=== PATIENT | male | born 1990 | race Asian ===

== ENCOUNTER 2018-02-05 21:15 | Emergency (ER) | payer SELFPAY ==
[2018-02-05 21:23] VITALS: TEMP 98.1
--- NOTE | 2018-02-05 21:29 | EDPHY ---
H & P Stated Complaint: Anxiety Time Seen by Provider: 02/05/18 21:16 - Personal History Current Tetanus/Diphtheria Vaccine: Unsure Current Tetanus Diphtheria and Acellular Pertussis (TDAP): Unsure - Medical/Surgical History Hx Asthma: No Hx Chronic Respiratory Disease: No Hx Diabetes: No Hx Cardiac Disease: No Hx Renal Disease: No Hx Cirrhosis: No Hx Alcoholism: No Hx HIV/AIDS: No Hx Splenectomy or Spleen Trauma: No Other PMH: Anxiety - Social History Smoking Status: Never smoked Constitutional: Initial Vital Signs Temperature (C) 36.7 C 02/05/18 21:20 Heart Rate 80 02/05/18 21:20 Respiratory Rate 18 02/05/18 21:20 Blood Pressure 147/95 H 02/05/18 21:20 O2 Sat (%) 98 02/05/18 21:20 O2 Delivery Mode Room Air Allergies/Adverse Reactions: alcohol Allergy (Verified 02/05/18 21:19) Home Medications: Medication Instructions Recorded NK [No Known Home Meds] 02/05/18 Medical Decision Making ED Course/Re-evaluation: CHIEF COMPLAINT: Anxiety HISTORY OF PRESENT ILLNESS: The patient is a 27 y/o [place] international student complaining of anxiety. Symptoms began after he had an interaction with a TA who told him his "paper was garbage" and would not give constructive feedback. He also has had difficulty communicating with fellow students due to his strong accent. He feels like he has no friends in the . No medical issues. REVIEW OF SYSTEMS: A 10 point review of systems was performed and is negative with the exception of the elements mentioned in the history of present illness. PHYSICAL EXAM: HR, BP, O2 Sat, RR. Temp noted General Appearance: Alert, well hydrated, appropriate, and non-toxic appearing. Anxious-appearing. Head: Atraumatic without scalp tenderness or obvious injury Eyes: Pupils equal, round, reactive to light and accommodation, EOMI, no trauma , no injection. Nose: Atraumatic, no rhinorrhea, clear. Throat: There is no erythema or exudates, no lesions, normal tonsils, mucus membranes moist. Neck: Supple, nontender, no lymphadenopathy. Respiratory: No retractions, no distress, no wheezes, and no accessory muscle use. Lungs are clear to auscultation bilaterally. Cardiovascular: Regular rate and rhythm, no murmurs, rubs, or gallops. Good capillary refill all extremities. Gastrointestinal: Abdomen is soft, nontender, non-distended, no masses, no rebound, no guarding, no peritoneal signs. Musculoskeletal: Normal active ROM of all extremities, atraumatic. Neurological: Alert, appropriate, and interactive. The patient has non-focal cranial nerves, motor, sensory, and cerebellar exam. Skin: No rashes, good turgor, no nodules on palpation. Past medical history: Anxiety Past surgical history: Denies Family history: Noncontributory Social history: [employer] student studying [employer]. [employer] student. From [facility]. DIFFERENTIAL DIAGNOSIS: The differential diagnosis for the patient's symptoms included but was not limited to anxiety, panic disorder, social situation. MEDICAL DECISION MAKING: This is a healthy and anxious-appearing 27 y/o male that is a [place] international student and is having several difficulties at school due to language and culture conflict issues. I spoke with him at length about these issues and contacted the 09/06 counseling services to discuss resources available to him. Discussed these resources with him and he plans to follow up in the morning. He is feeling much better and is comfortable with plan for discharge. Departure - Departure Disposition: Home, Routine, Self-Care Clinical Impression: Anxiety Condition: Good Instructions: Anxiety (ED) Additional Instructions: 1. Call the Student Support and Case Management office tomorrow [phone]. They will help arrange an advocate to support conversations between you and your department and TA. You have a right as a student to a [place] real estate lawyer to help facilitate this process. You will need to request the real estate lawyer. [email or web address] 2. Another resource available to you is the [facility] [employer]: [phone] 3. I recommend calling and making an appointment with [facility] ([facility]) to discuss your anxiety and support you during your time at . [phone]. [email or web address] Referrals: [facility],. [Clinic] - As per Instructions Report Scribed for: Esau Russell Report Scribed by: Heather Stokes Date of Report: 02/05/18 Time of Report: 21:36
[2018-02-05 22:32] VITALS: BP 134/72; PULSE 70; RESP 16; O2SAT 96
== END 2018-02-05 22:28 | disposition home or self-care (01) ==
DX: F41.9 Anxiety disorder, unspecified (principal)

== ENCOUNTER 2018-03-09 13:46 | Emergency (ER) | payer OTHER ==
--- NOTE | 2018-03-09 13:51 | EDPHY ---
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 He has prior history of similar. Symptoms started approximately an hour ago. He notes increase in stress related to school. Denies suicidal or homicidal ideation. Denies complaints of pain including no chest pain, no dyspnea, no nausea or vomiting, no headache. REVIEW OF SYSTEMS: A ten point review of systems was performed and is negative with the exception of the items mentioned in the HPI PAST MEDICAL & SURGICAL HISTORY: Prior anxiety SOCIAL HISTORY:Nonsmoker. No drug use. No cocaine use. PHYSICAL EXAM (Prior to examination, patient consented to physical exam, hands were washed and my usual and customary physical exam procedures followed) 1) GENERAL: Well-developed, well-nourished, alert and oriented. Appears uncomfortable. Hyperventilating, tremulous, tearful. 2) HEAD: Normocephalic, atraumatic 3) HEENT: Pupils equal, round, reactive to light bilaterally. Sclera anicteric. Nasopharynx, oropharynx, clear, no lesions. 4) NECK: Full range of motion, no meningeal signs. 5) LUNGS: Clear auscultation bilaterally, no wheezes, no rhonchi, no retractions. 6) HEART: Regular rate and rhythm, no murmur, no heave, no gallop. 7) ABDOMEN: No guarding, no rebound, no focal tenderness, 8) MUSCULOSKELETAL: Moving all extremities, no focal areas of tenderness, no obvious trauma. No peripheral edema or discoloration. 9) BACK: No CVA tenderness, no midline vertebral tenderness, no fluctuance, no step-off, no obvious trauma, no visual or palpable abnormality. 10) SKIN: No rash, no petechiae. 11) Psychiatric: Patient is oriented X 3, appears anxious, is hyperventilating , tremulous, tearful. DIFFERENTIAL DIAGNOSIS: In no particular include but limited to acute anxiety , pulmonary embolus, depression - Medical/Surgical History Hx Asthma: No Hx Chronic Respiratory Disease: No Hx Diabetes: No Hx Cardiac Disease: No Hx Renal Disease: No Hx Cirrhosis: No Hx Alcoholism: No Hx HIV/AIDS: No Hx Splenectomy or Spleen Trauma: No Other PMH: Anxiety - Social History Smoking Status: Never smoked Constitutional: Initial Vital Signs Temperature (C) 36.8 C 03/09/18 13:50 Heart Rate 110 H 03/09/18 13:50 Respiratory Rate 28 H 03/09/18 13:50 Blood Pressure 160/100 H 03/09/18 13:50 O2 Sat (%) 99 03/09/18 13:50 O2 Delivery Mode Room Air Allergies/Adverse Reactions: alcohol Allergy (Verified 02/05/18 21:19) Home Medications: Medication Instructions Recorded LORazepam [Ativan 1 mg (RX)] 1 mg PO Q6 PRN #4 tab 03/09/18 Medical Decision Making ED Course/Re-evaluation: 1:50 p.m.: Patient is tremulous, hyperventilating, tearful. Will administer intranasal Ativan and re-evaluate. Doubt cardiac or pulmonary etiology such as PE. Care of patient under supervision of secondary supervising physician Dr Buitrago . 2:30 p.m.: Re-evaluation after intranasal knee Ativan. He is resting comfortably, he appears calm, hyperventilation, tearfulness, tremulousness have resolved. He remains tachycardic 100 and hypertensive. He states that he is asymptomatic and he would like to be discharged. I have recommended further observation in the ER however he would like to go home. Denies suicidal or homicidal ideations. Denies intentional overdose or self-injurious behavior. - Data Points Medications Given: Discontinued Medications Lorazepam (Ativan Injection) 1 mg NASAL EDNOW ONE Stop: 03/09/18 13:51 Last Admin: 03/09/18 14:06 Dose: 1 mg Departure - Departure Disposition: Home, Routine, Self-Care Clinical Impression: Anxiety Condition: Good Instructions: Anxiety (ED) Additional Instructions: Return to the ER immediately if you experience thoughts of hurting yourself, thoughts of hurting other people, thoughts of killing other people or killing yourself. Avoid caffeinated beverages, avoid alcohol. Try to rest. Referrals: [facility],. [Clinic] - 1-2 days without fail Prescriptions: LORazepam [Ativan 1 mg (RX)] 1 mg PO Q6 PRN #4 tab PRN Reason: Anxiety
[2018-03-09] MEDS: LORazepam 2 MG/ML INJ NASAL ONE ×2 (14:06→14:33)
[2018-03-09 14:46] VITALS: BP 180/90
== END 2018-03-09 14:46 | disposition home or self-care (01) ==
LOC: EDUNIT#
DX: F41.9 Anxiety disorder, unspecified (principal)
CPT/HCPCS: J2060

== ENCOUNTER 2018-12-14 22:57 | Emergency (ER) | payer OTHER ==
[2018-12-14] MEDS ORDERED: LORazepam 2 MG/ML INJ NASAL ONE (23:00)
[2018-12-14 23:01] VITALS: BP 145/80
--- NOTE | 2018-12-14 23:07 | EDPHY ---
H & P Smoking Status: Never smoked Time Seen by Provider: 12/14/18 22:57 HPI/ROS: CHIEF COMPLAINT: Acute anxiety HISTORY OF PRESENT ILLNESS: 28-year-old male history of panic and anxiety attacks called 911 this evening because of acute anxiety related to his roommate , his roommate is playing video games to loud and patient is unable to study. The patient has been evaluated in the ER previously for acute panic/anxiety attack with excellent moderation of symptoms with benzodiazepine. He expresses frustration with his living situation. He denies suicidal or homicidal ideation. Denies illicit drug or alcohol use. He is a student no states that his studies are suffering because of his relationship with his roommate. PRIMARY CARE PROVIDER: REVIEW OF SYSTEMS: 10 systems reviewed and negative with the exception of the elements mentioned in the history of present illness PAST MEDICAL & SURGICAL HISTORY: Prior emergency department visits for acute anxiety SOCIAL HISTORY: Nonsmoker. No drug use PHYSICAL EXAM (Prior to examination, patient consented to physical exam, hands were washed and my usual and customary physical exam procedures followed) 1) GENERAL: Well-developed, well-nourished, alert and oriented. Appears uncomfortable, hyperventilating, crying, carpal pedal spasms noted 2) HEAD: Normocephalic, atraumatic 3) HEENT: Pupils equal, round, reactive to light bilaterally. Sclera anicteric. 4) NECK: Full range of motion, no meningeal signs. 5) LUNGS: Clear auscultation bilaterally, no wheezes, no rhonchi, no retractions. 6) HEART: Regular rate and rhythm, no murmur, no heave, no gallop. 7) ABDOMEN: No guarding, no rebound, no focal tenderness, negative McBurney's, negative Harris's, negative Rovsing's, negative peritoneal sign, 8) MUSCULOSKELETAL: Carpal pedal asthma is noted. Moving all extremities, no focal areas of tenderness, no obvious trauma. No peripheral edema or discoloration. 9) BACK: No CVA tenderness, no midline vertebral tenderness, no fluctuance, no step-off, no obvious trauma, no visual or palpable abnormality. 10) SKIN: No rash, no petechiae. 11) Psychiatric: Patient is oriented X 3, there is no agitation. DIFFERENTIAL DIAGNOSIS: In no particular order including but not limited to acute anxiety attack, pneumothorax, PE (Quinn Glover) Constitutional: Initial Vital Signs Temperature (C) 36.7 C 12/14/18 22:59 Heart Rate 96 12/14/18 22:59 Respiratory Rate 20 12/14/18 22:59 Blood Pressure 145/80 H 12/14/18 22:59 O2 Sat (%) 99 12/14/18 22:59 O2 Delivery Mode Room Air Allergies/Adverse Reactions: alcohol Allergy (Verified 12/14/18 22:58) Home Medications: Medication Instructions Recorded LORazepam [Ativan 1 mg (RX)] 1 mg PO Q6 PRN #4 tab 03/09/18 MDM/Departure - MDM Medications Given: Discontinued Medications Lorazepam (Ativan Injection) 1 mg NASAL EDNOW ONE Stop: 12/14/18 23:01 Last Admin: 12/14/18 23:03 Dose: 1 mg Lorazepam (Ativan 1 Mg Prepack#4) 1 btl TAKEHOME EDNOW ONE Stop: 12/14/18 23:09 Last Admin: 12/14/18 23:16 Dose: 1 btl ED Course/Re-evaluation: 11:06 p.m.: I previously evaluated the patient emergency department and he has responded well to intranasal Ativan. I reviewed his old medical records. Will administer intranasal Ativan and re-evaluated. He denies suicidal or homicidal ideation. I empathized with his living situation. Care of patient under supervision of secondary supervising physician Dr De La Cruz with whom I discussed case. 11:33 p.m.: Patient given intranasal Ativan, re-examined at this time. She is resting comfortably, carpal pedal spasms, hyperventilation resolved. States that he is feeling significant improvement would like to be discharged. I will discharge him with prepack of Ativan. He denies suicidal or homicidal ideation. Recommend following up with student a mental health services. (Quinn Glover) PHYSICIAN DOCUMENTATION: The patient was evaluated and managed by the Physician Instant Powder Supervisor. My co- signature indicates that I have reviewed this chart and I agree with the findings and plan of care as documented. I am the secondary supervising physician. (Celeste De La Cruz) - Depart Disposition: Home, Routine, Self-Care Clinical Impression: Acute anxiety Condition: Good Instructions: Lorazepam (By mouth), Anxiety (ED), Panic Attack (ED) Additional Instructions: Return to the ER immediately if you experience thoughts of hurting yourself, thoughts of hurting other people, thoughts of killing other people or killing yourself. Referrals: [facility]. [Clinic] - 2-3 days, call for appt.
[2018-12-14] MEDS ORDERED: LORAZEPAM 1 MG PREPACK#4 BTL TAKEHOME ONE (23:08)
== END 2018-12-14 23:39 | disposition home or self-care (01) ==
LOC: EDUNIT#
DX: F41.9 Anxiety disorder, unspecified (principal)
CPT/HCPCS: J2060

== ENCOUNTER 2019-02-19 14:42 | Inpatient (IN) | payer OTHER ==
--- NOTE | 2019-02-19 15:02 | EDPHY ---
H & P Time Seen by Provider: 02/19/19 14:48 HPI/ROS: CHIEF COMPLAINT: Suicidal ideation HISTORY OF PRESENT ILLNESS: 28-year-old male history of anxiety in the ER on M1 hold complaining of suicidal ideation with plan for "suicide by flight engineer helicopter". Denies self-injurious behavior. Denies acute alcohol or drug use. PRIMARY CARE PROVIDER: REVIEW OF SYSTEMS: 10 systems reviewed and negative with the exception of the elements mentioned in the history of present illness PAST MEDICAL & SURGICAL HISTORY: anxiety SOCIAL HISTORY:Denies alcohol or drug use PHYSICAL EXAM (Prior to examination, patient consented to physical exam, hands were washed and my usual and customary physical exam procedures followed) 1) GENERAL: Well-developed, well-nourished, alert and oriented. Appears to be in no acute distress. Calm cooperative 2) HEAD: Normocephalic, atraumatic 3) HEENT: Pupils equal, round, reactive to light bilaterally. Sclera anicteric. 4) NECK: Full range of motion, no meningeal signs. 5) LUNGS: Clear auscultation bilaterally, no wheezes, no rhonchi, no retractions. 6) HEART: Regular rate and rhythm, no murmur, no heave, no gallop. 7) ABDOMEN: No guarding, no rebound, no focal tenderness, negative McBurney's, negative Harris's, negative Rovsing's, negative peritoneal sign, 8) MUSCULOSKELETAL: Moving all extremities, no focal areas of tenderness, no obvious trauma. No peripheral edema or discoloration. 9) BACK: No CVA tenderness, no midline vertebral tenderness, no fluctuance, no step-off, no obvious trauma, no visual or palpable abnormality. 10) SKIN: No rash, no petechiae. 11) Psychiatric: Patient is oriented X 3, there is no agitation. DIFFERENTIAL DIAGNOSIS: In no particular order including but not limited to suicidal ideation, homicidal ideation, depression - Medical/Surgical History Hx Asthma: No Hx Chronic Respiratory Disease: No Hx Diabetes: No Hx Cardiac Disease: No Hx Renal Disease: No Hx Cirrhosis: No Hx Alcoholism: No Hx HIV/AIDS: No Hx Splenectomy or Spleen Trauma: No Other PMH: Anxiety, chronic back pain - Social History Smoking Status: Never smoked Constitutional: Initial Vital Signs Temperature (C) 36.6 C 02/19/19 14:42 Heart Rate 81 02/19/19 14:42 Respiratory Rate 16 02/19/19 14:42 Blood Pressure 135/82 H 02/19/19 14:42 O2 Sat (%) 95 02/19/19 14:42 O2 Delivery Mode Room Air Allergies/Adverse Reactions: alcohol Allergy (Verified 12/14/18 22:58) Home Medications: Medication Instructions Recorded Ketamine HCl in NaCl, Iso-Osm 02/19/19 Medical Decision Making ED Course/Re-evaluation: 5:15 p.m.: Patient has been accepted for admission [address] Hubbard, admitting physician for major depression, suicidal ideation. cr paperwork - Data Points Laboratory Results: Laboratory Results 02/19/19 15:08 02/19/19 15:08 02/19/19 02/19/19 02/19/19 15:08 15:08 14:50 WBC 5.82 10^3/uL 10^3/uL (3.80-9.50) RBC 5.36 10^6/uL 10^6/uL (4.40-6.38) Hgb 16.0 g/dL g/dL (13.7-17.5) Hct 47.7 % % (40.0-51.0) MCV 89.0 fL fL (81.5-99.8) MCH 29.9 pg pg (27.9-34.1) MCHC 33.5 g/dL g/dL (32.4-36.7) RDW 12.1 % % (11.5-15.2) Plt Count 356 10^3/uL 10^3/uL (150-400) MPV 9.9 fL fL (8.7-11.7) Neut % (Auto) 50.7 % % (39.3-74.2) Lymph % (Auto) 37.1 % % (15.0-45.0) Bracken % (Auto) 9.1 % % (4.5-13.0) Eos % (Auto) 1.9 % % (0.6-7.6) Baso % (Auto) 0.9 % % (0.3-1.7) Nucleat RBC Rel Count 0.0 % % (0.0-0.2) Absolute Neuts (auto) 2.95 10^3/uL 10^3/uL (1.70-6.50) Absolute Lymphs (auto) 2.16 10^3/uL 10^3/uL (1.00-3.00) Absolute Monos (auto) 0.53 10^3/uL 10^3/uL (0.30-0.80) Absolute Eos (auto) 0.11 10^3/uL 10^3/uL (0.03-0.40) Absolute Basos (auto) 0.05 10^3/uL 10^3/uL (0.02-0.10) Absolute Nucleated RBC 0.00 10^3/uL 10^3/uL (0-0.01) Immature Gran % 0.3 % % (0.0-1.1) Immature Gran # 0.02 10^3/uL 10^3/uL (0.00-0.10) Sodium 138 mEq/L mEq/L (135-145) Potassium 4.0 mEq/L mEq/L (3.5-5.2) Chloride 101 mEq/L mEq/L (97-110) Carbon Dioxide 25 mEq/l mEq/l (22-31) Anion Gap 12 mEq/L mEq/L (6-14) BUN 11 mg/dL mg/dL (7-23) Creatinine 0.8 mg/dL mg/dL (0.7-1.3) Estimated GFR > 60 Glucose 101 mg/dL H mg/dL (70-100) Calcium 10.0 mg/dL mg/dL (8.5-10.4) Urine Opiates Screen NEGATIVE (NEGATIVE) Acetaminophen < 10 mcg/mL L mcg/mL (10-30) Urine Barbiturates NEGATIVE (NEGATIVE) Ur Phencyclidine Scrn NEGATIVE (NEGATIVE) Ur Amphetamine Screen NEGATIVE (NEGATIVE) U Benzodiazepines Scrn NEGATIVE (NEGATIVE) Urine Cocaine Screen NEGATIVE (NEGATIVE) U Marijuana (THC) Screen NON-NEGATIVE H (NEGATIVE) Ethyl Alcohol < 10 mg/dL mg/dL (0-10) Departure - Departure Disposition: [facility] IP Clinical Impression: Suicidal ideation, Severe major depression Condition: Fair Referrals: NONE *PRIMARY CARE P,. [Primary Care Provider] - As per Instructions
[2019-02-19 15:20] LABS: PLATELET COUNT 356 10^3/uL (150-400)
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
--- NOTE | 2019-02-19 16:56 | ASMTTCLDSP ---
TLC Discharge Disposition Disposition: Answers: Admit Disposition Notes: Notes: In consultation with [facility] ED physician, Manuel Arnold MD and on-call psychiatrist, Diony Hubbard MD, both concurred that pt appears to meet 27-65 criteria requiring psychiatric hospitalization as pt appears to be at risk of harm to self due to a mental illness condition. Pt was read the Patient Rights and Responsibilities Statement on (02/19/19 at 16:45), original placed on chart, and was given photocopy of Rights. Pt signed the Patient Rights. Pt was given the 3N prohibited belongings list while in the ED. Was patient given the Answers: Yes Inpatient Behavioral Health Prohibited Belongings List while in the ED? For inpatient Diony Hubbard MD admission, the following psychiatrist agreed to accept patient for admission to Behavioral Health ([facility]): Type of Hold: Answers: M1/72-hour Hold Hold initiated by: Answers: Other Notes: [facility] Triage Therapis t Date Signed: 02/19/2019 04:56 PM Electronically Signed By:Manuel Raza
[2019-02-19] MEDS ORDERED: MAGNESIUM HYDROXIDE 30 ML UDCUP PO PRN (20:36)
[2019-02-19] MEDS ORDERED: LORazepam 0.5 MG TAB PO PRN (20:36)
[2019-02-19] MEDS ORDERED: ACETAMINOPHEN 325 MG TAB PO PRN (20:36)
[2019-02-19] MEDS ORDERED: MAG HYDROX/AL HYDROX/SIMETH 30 ML UDCUP PO PRN (20:36)
[2019-02-19] MEDS ORDERED: NICOTINE POLACRILEX 2 MG GUM B PRN (20:36)
--- NOTE | 2019-02-20 10:18 | ASMTBHMTP ---
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 PT presents on an M1 Hold for suicidal Ideation. PT was placed on a M1 hold by [facility] triage counselor. [facility] triage therapist Anitra spoke to TLC and reported they were extremely concerned due to his escalating suicidal Ideation, they have seen him several times in distress including yesterday when he reported HI and SI. They were able to safety plan and deescalate the HI but the pt's plan was to do suicide by telescope repairer. Patient's stated presenting problems: Notes: Pt. prefers to be called "Werner". Pt. stated he has been "suffering from depression". Pt. stated he "sometimes can't control self". Pt. discussed concerns about a TA in one of his classes. Patient's goals for treatment: Notes: Pt. stated his goal is "want to learn socializing skills", adding he would also like "want to study". Patient's strengths: Notes: Pt. stated "my Cuban is good" and joked it's because he is from [place]. Identify supports outside of hospital: Notes: Pt. stated his roommate Bipin. Discharge criteria: Notes: Suicidal ideation will resolve and patient will have a plan to safely manage recurrent suicidal ideation. Initial disposition plan/considerations: Notes: Pt. stated he plans to return to school. Pt. shared he will be walking in the spring. Master Treatment Plan Required Signatures Psychiatrist signature: Answers: Psychiatrist: RN on-shift signature: Answers: RN: Patient signature: Answers: Patient: Date Signed: 02/20/2019 10:17 AM Electronically Signed By:Myra Peguero
--- NOTE | 2019-02-20 14:55 | PDMN ---
Medical Necessity Medical necessity: [facility] [id number] Major Depressive Disorder, Adult: Inpatient Care, 3 days: 28 yo w/ major depressive d/o, recurrent, severe, on M1 hold for suicide ideation. Admit IP status to BEH unit.
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
--- NOTE | 2019-02-20 19:06 | PDGENHP ---
History and Physical History and Physical: Reason for Consult: Medical Evaluation History of present illness: Patient is a 28-year-old male with history of anxiety who was admitted for suicidal ideation. He has recently felt more stress than usual lately. 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 He has some stress associated with school, his job search, and his parents. He is frustrated about cultural ignorance, prejudice, and bigotry he has encountered living in [place]. He has been getting mental health counseling twice a week through his university. He most recently became very depressed and hopeless and told a school therapist that he was thinking about committing "copra sampler suicide", which means threatening/fighting with a uniform patrol police officer in the hopes of getting fatally shot. Other than that, the patient feels physically healthy. On review of systems, he only complains of occasional headaches and low back pain, which he has intermittently experienced since he was a teenager. Past medical history: Anxiety, insomnia. Past surgical history: No surgeries. Medications: Intranasal ketamine Allergies: NKA. Social history: Denies alcohol use. Smokes cigarettes regularly (chain smokes before exams, but may smoke 0 cigarettes daily when he is stress-free). Daily marijuana use for anxiety (both smoking/edibles) Family history: healthy. Review of systems: 10 point review of systems was conducted and is negative except per HPI. Physical exam: Vitals: Reviewed General: The patient is a male who is alert and in no acute distress. HEENT: normocephalic, extraocular movements intact, conjunctivae clear, no lesions on face. Nares and oral mucosa pink and moist. Neck: trachea midline, no visible masses, no external lesions. CV: +2 radial pulses and posterior tibialis pulses bilaterally. Resp: unlabored breathing. Abd: soft and nondistended. Nontender. Musculoskeletal: Normal gait. 5/5 strength bilat UE/LE. +mild tenderness to deep palpation around sacral paraspinal musculature. Neuro: cranial nerves II - XII grossly intact. Intact gross motor and sensory function. Psych: appropriate mood/affect. Skin: no pallor. Labs: WBC 5.82 hemoglobin 16 platelets 356 sodium 138 potassium 4 chloride 101 CO2 25 BUN 11 creatinine 0.8 glucose 101. Hemoglobin A1c 5.4. Toxicology- positive for marijuana. Other Data: None. Impression and plan: Suicidal Ideation Acute stress reaction Anxiety/Depression Insomnia Cannabis use disorder Tobacco use disorder Intermittent low back pain Intermittent tension headaches -Acetaminophen prn back pain/CARTER. -Pt is medically clear for psychiatric/psychological inpatient Tx. -Discussed that perhaps marijuana augments pt's mood when it comes to anger/ depression/anxiety, but pt feels it has no AE and greatly helps w/ insomnia. Consider further discussion about cessation. -Melatonin prn insomnia. -Nicotine patch prn. Thank you for the consultation.
[2019-02-20] MEDS ORDERED: MELATONIN 3 MG TAB PO PRN (22:27)
[2019-02-21] MEDS ORDERED: PNEUMOCOCCAL 0.5ML VACCINE VIAL (PNEUMOVAX 23) IM ONE (13:22)
--- NOTE | 2019-02-21 15:28 | ASMTCMCOM ---
CM Note CM Note Notes: The patient reported that he was not feeling suicidal. He explained that suicidality is contextualized by location. For instance, the patient seems comfortable and hopeful on the unit and acknowledges feeling safe whereas when the patient is in the community and on campus he feels greater risk and increased suicidality. CC notified the [facility] [employer] of the patient's admission; clinical referral sent. The patient met with this commercial loan underwriter and the provider where we discussed medication as treatment. The patient stated, "I'm afraid because it isn't something I've done before." The nurse provided medication education including literature for the patient to consider. The patient reported being open and willing to try medication. Date Signed: 02/21/2019 11:34 AM Electronically Signed By:Mirna Yo
--- NOTE | 2019-02-21 17:32 | SOAPPROG ---
SOAP Progress Note Assessment/Plan: Assessment: 28 yo student with worsening depression, anxiety, insomnia, admitted on M1 for SI with plan to commit "suicide by electron microscopist." Plan: 02/21/19 17:24 1. MD and CC met with patient and discussed options for medication treatment. MD discussed r/b/se's of Prozac and SSRIs in general. Patient said he was "scared" of SE's from meds and wanted to continue with therapy only. MD expressed concern that patient had been doing therapy for awhile and his depression and SI were becoming worse. MD urged patient to consider addition of antidepressant medication. Patient said he would read handout MD provided and "learn more" about the medication before making a decision. 2. Patient states he doesn't feel suicidal in hospital, but admits he will probably have SI when he goes back to campus. 3. MD recommends initiation of Prozac or other antidepressant medication while in hospital with close monitoring and supervision by psych MD or [facility] STERILIZER at [facility]. MD also recommends increased frequency of 1:1 therapy at [facility], and addition of group therapy to address patient's perception that no one likes him b/c he's a foreigner and they all just want him to "go home." MD believes it would be very beneficial for patient to start addressing some of his negative assumptions about his peers at and make some positive social connections. Group therapy would be an appropriate place to accomplish these goals. 4. CC to f/u with [facility] and [facility] to schedule aftercare treatment. 5. [facility] expires tomorrow. Subjective: MD and CC met with patient in his room. He was dressed in shorts and T-shirt, sitting on his bed, in NAD. He reports, "I feel fine now" and says he has no SI in hospital. But he also told CC that when he goes back to campus, "I will be suicidal." MD talked to patient about strategies for managing his depression and anxiety. Patient has been smoking "a lot" of marijuana to manage his anxiety and insomnia. MD explained that cannabis has serious adverse effects on mood, cognition, perception, motivation, focus/attention and behavior. MD pointed out that patients with depression who use cannabis are more likely to feel depressed and more likely to think about suicide. MD encouraged patient to cut back and stop using THC. MD also advised starting antidepressant medication. Patient said he was "scared about taking meds" because he's worried about possible SE's. MD tried to answer patient's questions about r/b/se's of SSRIs. Patient said he would like to learn more about meds before making his decision. MD offered patient drug information handout to read about Prozac. Objective: Vital Signs Temp Pulse Resp BP Pulse Ox 36.4 C 72 16 127/68 H 97 02/21/19 06:00 02/21/19 14:51 02/21/19 14:51 02/21/19 14:51 02/21/19 14:51 MSE: Affect: Euthymic Mood: "I'm fine now" TP: Linear, goal-directed TC: Denies SI "now" but claims it will return when he goes back to "campus" Insight /Judgment: Poor a/e/b willingness to continue to use THC and skepticism about SSRIs - Time Spent With Patient Time Spent With Patient: 25" - Pending Discharge Pending Discharge Within 24 Hours: Yes Pending Discharge Within 48 Hours: No Pending Discharge Date: 02/22/19 (Possible d/c on Friday when [facility] expires) Pending Discharge Time: 11:00 ICD10 Worksheet Patient Problems: Problems Problem Status Onset Severe major depression Acute Suicidal ideation Acute
[2019-02-22 06:37] VITALS: BP 98/66
--- NOTE | 2019-02-22 11:02 | BDS ---
[f rep st] BEHAVIORAL HEALTH DISCHARGE SUMMARY REASON FOR ADMISSION: From the ED note dated 02/19/19, patient with history of anxiety, presented to the ER on an M1 hold complaining of suicidal ideation with a plan for "suicide by telescope repairer." Patient was admitted involuntarily on an M1 hold due to being a danger to himself. Patient was admitted for safety, crisis stabilization, and medication evaluation. ADMITTING DIAGNOSIS: Major depressive disorder, severe. ADMISSION PHYSICAL EXAM: The patient was seen on 02/20/2019 for history and physical for medical clearance for inpatient psychiatric hospitalization and treatment. The patient was medically cleared for inpatient psychiatric hospitalization and treatment. For further details, please refer to history and physical brief document dated 02/20/19. ADMISSION LABS: 1. CBC within normal limits. 2. BMP within normal limits except glucose is elevated at 101. 3. Hemoglobin A1c within normal limits at 5.4. 4. Lipid panel within normal limits except cholesterol is elevated at 281, LDL cholesterol calculated is elevated at 198, and non-HDL cholesterol is elevated at 216. 5. Toxicology screen non-negative for THC, negative for all the other substances screened and negative for ethyl alcohol. MAJOR PROCEDURES OR TESTS: None. HOSPITAL COURSE: The most prominent symptoms and behaviors while the patient was here were reports of moderate anxiety and depression. Treatment modalities utilized were milieu and group therapy. Patient has improved considerably with no signs of psychiatric symptoms and no psychiatric symptoms expressed. Patient reports he has improved since admission, states to be in stable condition, feels safe to discharge, and he contracts for safety. Patients response to treatment was good. There were no adverse or unexpected results of treatment. The patient was safe throughout stay, active in treatment, engaged in groups, and was appropriate with staff. Patient met with treatment team prior to discharge to assess readiness to discharge and review discharge plan. The treatment team consensus is the patient in stable condition, has a safe discharge plan, and is ready to discharge today. CONDITION AT DISCHARGE: Patient is in stable condition and is no longer a danger to self or others, and is not gravely disabled due to mental illness. Patient is no longer in need of inpatient level of care, and can be safely and effectively treated within the community. The patients level of risk at time of discharge is low. MSE: The patient is casually dressed and with good hygiene , and looks stated age. Patient is sitting, posture is upright, and position is relaxed. Patient appears awake, alert, and responds appropriately and reasonably during interview. Patient is engaged, relates well to interviewer, and emotional facial expression is appropriate to situation and changes appropriately with topic. Patient is cooperative, makes comfortable eye contact , and movements are voluntary, deliberate, coordinated, and smooth and even with no inappropriate movements. Patient makes laryngeal sounds effortlessly and shares conversation appropriately; pace of conversation is appropriate, and stream of talking is fluent; articulation is clear and understandable; word choice is effortless and appropriate for education level; completes sentences, occasionally pausing to think; rate and volume are appropriate for interview and setting. Patient reports mood as euthymic. Patients affect is stable with full variable range, congruent with mood, and appropriate to speech and circumstances. Patient has linear and logical thinking, with no loose associations, tangential thought, thought blocking, concrete thinking, or any other signs of formal thought disorder. Patient denies suicidal and homicidal ideation, and denies hallucinations and delusions. Patient appears to be a reliable historian with sound judgement and good insight into current condition. Patient has no apparent dysfunction in recent or remote memory noted , and no evidence of gross cognitive dysfunction noted at any point during the interview. DISCHARGE DIAGNOSIS: Major depressive disorder, severe. CURRENT MEDICATIONS: After reviewing options, risks and benefits with the patient, patient agrees to follow up on an outpatient basis for ongoing medication evaluation and management as indicated. DISPOSITION: Patient left hospital independently and voluntarily and plans to return to his home in [place] and return to classes at . FOLLOWUP: patient scheduling coordinator reports the appropriate outpatient follow-up services have been established and outpatient appointments have been scheduled. The patient received written instructions with times and dates of outpatient follow-up appointments. The following follow-up recommendations were provided to the patient at discharge: Continue psychotropic medications as prescribed and attend appointments as scheduled. Report any side effects to a psychiatric outpatient provider, a primary care provider, or other health daycare assistant. Address any questions or problems concerning the psychotropic medications with a psychiatric outpatient provider, a primary care provider, or other health daycare assistant. Contact [facility] or [facility], or go to the nearest emergency room, if you are ever a danger to yourself/others, or unable to care for yourself. As soon as possible, establish a routine medication management treatment with a psychiatric provider, establish routine therapy appointments, and follow-up with a primary care provider. LEGAL COURSE: Patient was admitted on an M1 hold for involuntary inpatient psychiatric hospitalization and treatment. Patient discharged today independently and voluntarily. ATTITUDE AT TIME OF DISCHARGE: The patients attitude was positive at time of discharge, and patient reports looking forward to discharging today. The patient reports he feels safe to discharge, is no longer a danger to himself or others, is in stable condition, and contracts for safety. Patient states he will continue medications as prescribed, and establish medication management treatment with an outpatient provider after discharge. Patient reports he understands the information that has been provided to him, and he understands, accepts, and agrees to psychotropic medications. Patient describes internal protective factors as the coping skills he has learned while hospitalized here, and he plans to continue to practice these coping skills after discharge. LABS AND STUDIES: There were no pending labs or studies at time of discharge. ADVANCE DIRECTIVES: There were no advance directives on file, and patient was full code during this hospitalization. The following psychotropic medication treatment informed consent and recommendations were provided to the patient at time of discharge. Patient reports he understands, accepts, and agrees to the information that has been provided. PSYCHOTROPIC MEDICATION TREATMENT INFORMED CONSENT and RECOMMENDATIONS: Review nature of condition, diagnosis, and prognosis. Review nature and purpose of psychotropic medication treatment. Review type of psychotropic medications being prescribed. Review risk and benefits of psychotropic medication treatment. Review probable length of time will need to take medications. Review risk and benefits of not undergoing psychotropic medication treatment. Review alternative treatments to psychotropic medications. Review psychotropic medications contraindications, side effects, and importance of reporting any side effects to a psychiatric provider, primary care provider, or other health daycare assistant. Review importance of asking a psychiatric provider or primary care provider any questions or problems concerning the psychotropic medications. Review safety plan and the importance to contact [facility] or [facility] , or go to the nearest emergency room, if ever a danger to yourself/others, or unable to care for yourself. Recommend upon discharge to establish routine medication management treatment with a psychiatric provider, establish routine therapy appointments, and follow-up with a primary care provider. Verify patient understands, accepts, and agrees to the information that has been provided. /[id number]/MODL MTDD
--- NOTE | 2019-02-22 12:44 | ASMTBHDC ---
Notes Note: Notes: The patient participated in clinical treatment team rounds. He was energetic and cheerful which he attributed to his motivation to finish the semester and graduate. The patient seemed eager to return to school with only a few weeks remaining and an anticipated visit from his family. The patient intends on following up with [facility] and considering medication as treatment. CC confirmed the patient's upcoming appointment on February 23 @ 11:00. Date Signed: 02/22/2019 11:25 AM Electronically Signed By:Mirna Yo
== END 2019-02-22 11:40 | disposition home or self-care (01) | DRG 885 ==
LOC: BBEH 20:00
PROVIDERS: ADMIT Psychiatry & Neurology Psychiatry; ATTEND Psychiatry & Neurology Psychiatry
DX: F33.3 Major depressive disorder, recurrent, severe with psychotic symptoms (principal); G47.00 Insomnia, unspecified; F12.959 Cannabis use, unspecified with psychotic disorder, unspecified; M54.5 Low back pain; Z72.0 Tobacco use; Z23 Encounter for immunization
CPT/HCPCS: 80305; G0008; G0009; G0480